=== PATIENT | male | born 1965 | race Caucasian/White ===

== ENCOUNTER 2019-09-27 15:59 | Emergency (ER) | payer MEDICAID, SELFPAY ==
[2019-09-27 16:49] VITALS: BP 144/86; PULSE 80; RESP 20; TEMP 36.9; O2SAT 99; BMI 29.3
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
[2019-09-27 17:12] VITALS: BP 144/86; PULSE 80; RESP 20; TEMP 36.9; O2SAT 99
[2019-09-29 08:25] LABS: Covid-19 Nasal PCR Sendout UK Not Detected
== END 2019-09-27 17:15 | disposition home or self-care (01) ==
PROVIDERS: Emergency Provider Nurse Practitioner; PCP Emergency Medicine
DX: Z20.828 Contact with and (suspected) exposure to other viral communicable diseases (principal); I10 Essential (primary) hypertension; F17.210 Nicotine dependence, cigarettes, uncomplicated
CPT/HCPCS: 99201; U0003

== ENCOUNTER → 2020-02-07 17:41 | Outpatient (CLI) | payer MEDICAID, SELFPAY ==
[2020-02-07 18:15] LABS: Basophils % 0.5 % (0.1-2.0); Eosinophils # 0.3 K/mm3 (0.0-0.4); Eosinophils % 3.2 % (0.1-12.0); Hematocrit 44.7 % (42.0-52.0); Hemoglobin 15.3 g/dL (14.1-18.0); Lymphocytes % 23.8 % (10-50); Mean Corpuscular HGB Conc 34.2 g/dL (31.8-35.4); Mean Corpuscular Hemoglobin 32.5 pg (27.0-31.2); Mean Corpuscular Volume 95.3 fl (80-94); Mean Platelet Volume 11.1 fl (7.4-10.4); Monocytes # 0.5 K/mm3 (0.1-1.0); Neutrophils # 5.7 K/mm3 (1.8-7.8); Neutrophils % 66.5 % (37.0-80.0); Platelet Count 175 K/mm3 (142-424); Red Blood Count 4.69 M/mm3 (4.60-6.20); Red Cell Distribution Width 13.7 % (11.5-17.5); White Blood Count 8.5 K/mm3 (4.8-10.8)
[2020-02-07 18:33] LABS: Chloride 100 mmol/L (98-107); Potassium 4.7 mmoL/L (3.5-5.1); Sodium 137 mmol/L (136-145)
[2020-02-07 18:35] LABS: Blood Urea Nitrogen 19 mg/dl (9-20); Estimated Glomerular Filt Rate 117 ml/min (>60); GFR (African American) 142 ML/MIN (>60)
[2020-02-07 18:36] LABS: Alanine Aminotransferase 38 U/L (12-78); Albumin Level 4.5 g/dl (3.5-5.0); Albumin/Globulin Ratio 1.7 (1.1-1.8); Alkaline Phosphatase 66 U/L (38-126); Anion Gap 10.7 mEq/L (5-15); Aspartate Amino Transferase 36 U/L (17-59); Bilirubin,Total 0.4 mg/dl (0.2-1.3); Calcium 9.6 mg/dl (8.4-10.2); Carbon Dioxide 31 mmol/L (22.0-30.0); Cholesterol 215 mg/dl (140-200); Globulin 2.7 g/dL (1.3-3.2); Glucose 170 mg/dl (74-100); Total Protein,Serum 7.2 g/dl (6.3-8.2); Triglycerides 95 mg/dl (30-150); VLDL Cholesterol 19 mg/dL (0-40)
[2020-02-07 18:47] LABS: Direct LDL Cholesterol 137.19 mg/dL (100-129)
[2020-02-07 18:51] LABS: Chol/HDL Ratio 3.7 (1-3.5); HDL Cholesterol 58 mg/dl (40-60)
[2020-02-07 18:52] LABS: Free T4 (Free Thyroxine) 0.82 ng/dl (0.78-2.19)
[2020-02-07 18:53] LABS: 25-OH Vitamin D, Total 38.4 ng/mL (30-100)
[2020-02-07 19:07] LABS: Thyroid Stimulating Hormone 0.51 uIU/mL (0.465-4.68)
[2020-02-07 20:35] LABS: Prostate Specific Ag Screen 0.7 ng/ml (0.0-4.0)
== END ==
PROVIDERS: Visit Provider Emergency Medicine
DX: I10 Essential (primary) hypertension (principal); E55.9 Vitamin D deficiency, unspecified; Z12.5 Encounter for screening for malignant neoplasm of prostate; Z79.899 Other long term (current) drug therapy
CPT/HCPCS: 80053; 80061; 82306; 84439; 84443; 85025; G0103

== ENCOUNTER → 2020-02-11 19:22 | Outpatient (CLI) | payer MEDICAID, SELFPAY ==
[2020-02-11 21:30] LABS: Hemoglobin A1C 5.9 % (4.0-6.0)
== END ==
PROVIDERS: Visit Provider Emergency Medicine
DX: R73.09 Other abnormal glucose (principal)
CPT/HCPCS: 83036

== ENCOUNTER → 2020-03-12 16:47 | Outpatient (CLI) | payer OTHER, SELFPAY ==
--- NOTE | 2020-03-12 16:47 | MR_ITS ---
PROCEDURE: MR LUMBAR SPINE WO CON CLINICAL INDICATION: low back pain LOW BACK PAIN. RT LEG PAIN, NUMBNESS, AND TINGLING. NO INJURY. NO PRIOR. COMPARISON: MR PORT PURSER/O MRI-C-SPINE W/O from 11/25/2015 TECHNIQUE: Standard multiplanar multiecho sequences are performed without contrast. 3-D MIP and myelographic images are also rendered and reviewed FINDINGS: Normal alignment. The spinal cord ends at the L1 level. There is multilevel lumbar spondylosis. T12-L1: Small left-sided lateral osteophyte. L1-L2: Endplate irregularity with degenerative disc disease. There is slight loss of height anteriorly of L1 which appears old minimal bulging disc with mild facet and ligamentum hypertrophy with mild left lateral recess narrowing. L2-L3: Degenerative disc disease with mild bulging disc with facet and ligamentum hypertrophy. There is mild left lateral recess narrowing and mild bilateral foraminal narrowing. There is an annular fissure within the disc anteriorly and on the left L3-L4: Mild bulging disc. Facet and ligamentum hypertrophy with mild bilateral lateral recess and foraminal narrowing. L4-5: Degenerative disc disease with bulging disc along with facet and ligamentum hypertrophy. There is a small left paracentral and foraminal disc osteophyte complex causing left lateral recess and foraminal narrowing. There is an annular fissure at this region as well. This is best detected on the sagittal images. Canal stenosis is present at this level L5-S1: Degenerative disc disease with bulging disc with minimal retrolisthesis of L5 of 4 mm and mild endplate hypertrophic change with facet and ligamentum hypertrophy. There is severe right and left foraminal narrowing and bilateral lateral recess narrowing. There is mild transverse narrowing of the canal at this level. IMPRESSION: There is multilevel lumbar spondylosis with degenerative disc disease, bulging disc, and facet and ligamentum hypertrophy with varying degrees of lateral recess and foraminal narrowing and also with canal stenosis. Please see above for detailed description at each level. No extruded herniated disc evident. Dictated by: Bob Harrison MD 03/14/2020 10:41 Bob Harrison MD in [place] 03/14/2020 10:41
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
== END ==
PROVIDERS: PCP Emergency Medicine; Visit Provider Nurse Practitioner Family
DX: M54.5 Low back pain (principal); H05.53 Retained (old) foreign body following penetrating wound of bilateral orbits
CPT/HCPCS: 70200; 72148; 76376

== ENCOUNTER 2020-03-31 13:00 | Outpatient (RCR) | payer OTHER, SELFPAY ==
--- NOTE | 2020-03-12 16:51 | HMH.PTOPEV ---
PT Outpatient Evaluation Rehab PT Outpatient Evaluation Start: 03/12/20 16:37 Freq: Status: Active Protocol: Document 03/12/20 16:37 ADRIANO (Rec: 03/12/20 16:51 ADRIANO [id number]) Electronically Signed By Vicente Anaya, PT 03/12/20 16:37 Outpatient Therapy Subjective History Subjective History Patient is a 54 year old male presenting to outpatient PT with reports of chronic LBP of insidious onset. Patient reports that symptoms have worsened over the past month upon starting a new job increased standing/lifting activities. No recent imaging to report. No radicular symptoms to report. Comorbidities include hx of HTN, R knee arthroscopic sx, inquinal hernia repair and current umbilical hernia ( possible diastasis recti). Chief Complaint Pain,Spasms,Stiff Symptom Type Ache,Sharp Symptoms Relieved By Rest/Positioning,Ice,OTC Meds, Prescription Meds Symptoms Aggravated By Standing,Bending/Stooping, Lifting Prior Functional Limitations None Current Functional Limitations Reaching,Lifting,Housework, Standing,Squatting,Recreation Activity,Walking,Stairs, Bending/Stooping Symptom Description Constant but Variable Level of pain today (0-10) 3 Pain scale - at its best (0-10) 2 Pain scale - at its worst (0-10) 7 Lumbopelvic Eval Posture Thoracic Spine Posture Standing Position Neutral Lumbar Spine Posture Standing Position Neutral Assistive device Assistive Devices None / NA Palapation tenderness bilateral paraspinal tenderness Yes: L1-5 3/4 buttock tenderness Yes: 3/4 Accessory Movement L3 bilateral L4 bilateral L5 bilateral Range of Motion Lumbar Spine Active Flexion Range of 85 Motion (degrees) Lumbar Spine Active Extension Range of 18 Motion (degrees) Left Lumbar Spine Lateral Flexion Active 20 Range of Motion (degrees) Right Lumbar Spine Lateral Flexion 25 Active Range of Motion (degrees) Lumbar Spine ROM Limitations Soft Tissue Tightness,Bony Restriction Manual Muscle Test Bilateral Knee Extension Strength Grade 5 Normal
== END 2020-03-31 13:05 | disposition home or self-care (01) ==
LOC: PT 13:00
PROVIDERS: PCP Emergency Medicine; Visit Provider Nurse Practitioner Family
DX: M54.5 Low back pain (principal)
CPT/HCPCS: 97010; 97012; 97014; 97110; 97163; G0283

== ENCOUNTER 2020-06-15 20:48 | Emergency (ER) | payer OTHER, SELFPAY ==
[2020-06-15] VITALS (7 sets, daily range): BP systolic 110–168; BP diastolic 75–105; PULSE 71–89; RESP 16–20; TEMP 36.7; O2SAT 93–98; BMI 31.1
--- NOTE | 2020-06-15 20:42 | ECG_ITS ---
APPROVED REPORT Exam: Resting ECG HR:80 bpm ECG Measurements Heart Rate 80 AXES FL 164 P 64 QRSd 102 QRS 7 QT 362 T 63 QTc 417 Conclusion Normal sinus rhythm Normal ECG Electronically signed by : Talon Whittington, 06/16/2020 19:36:39
--- NOTE | 2020-06-15 20:53 | XR_ITS ---
PROCEDURE: XR CHEST 2V CLINICAL HISTORY: chest pain COMPARISON: No exams were available for comparison FINDINGS: The cardiomediastinal silhouette and pulmonary vascularity are within normal limits. No lobar consolidation or collapse. There is an 8 mm nodular opacity overlying the left apex. The remaining clear. No acute bony findings IMPRESSION: No acute finding. 8 mm nodular opacity left apex. Summation density, pulmonary nodule, or sclerotic lesion of the rib is consideration. Follow-up suggested to confirm stability. Dictated by: Bob Harrison MD 06/16/2020 05:42 Bob Harrison MD in [place] 06/16/2020 05:42
[2020-06-15 21:01] LABS: Basophils # 0.1 K/mm3 (0-0.2); Basophils % 0.7 % (0.1-2.0); Eosinophils # 0.3 K/mm3 (0.0-0.4); Hematocrit 44.1 % (42.0-52.0); Hemoglobin 14.8 g/dL (14.1-18.0); Lymphocytes # 2.5 K/mm3 (0.7-4.5); Lymphocytes % 25.6 % (10-50); Mean Corpuscular HGB Conc 33.6 g/dL (31.8-35.4); Mean Corpuscular Volume 95.3 fl (80-94); Mean Platelet Volume 8.2 fl (7.4-10.4); Monocytes # 0.7 K/mm3 (0.1-1.0); Neutrophils # 6.2 K/mm3 (1.8-7.8); Neutrophils % 63.8 % (37.0-80.0); Platelet Count 203 K/mm3 (142-424); Red Blood Count 4.62 M/mm3 (4.60-6.20); White Blood Count 9.7 K/mm3 (4.8-10.8)
[2020-06-15 21:10] LABS: Anion Gap 10.2 mEq/L (5-15); Blood Urea Nitrogen 20 mg/dl (9-20); Calcium 9.7 mg/dl (8.4-10.2); Carbon Dioxide 32 mmol/L (22.0-30.0); Chloride 99 mmol/L (98-107); Creatinine Clearance Estimated 154 mL/min (50-200); Estimated Glomerular Filt Rate 100 ml/min (>60); GFR (African American) 121 ML/MIN (>60); Glucose 112 mg/dl (74-100); Potassium 4.2 mmoL/L (3.5-5.1); Sodium 137 mmol/L (136-145)
[2020-06-15 21:16] LABS: C-Reactive Protein 3.7 mg/L (0-4)
[2020-06-15 21:30] LABS: Procalcitonin 0.037 ng/mL (0.0-2.0)
[2020-06-15 21:37] LABS: Troponin I < 0.01 ng/ml (0.00-0.034)
[2020-06-15 22:21] LABS: Erythrocyte Sedimentation Rate 25 mm/hr (0-20)
--- NOTE | 2020-06-15 23:26 | HMH.EDCP ---
ED Disposition Clinical Impression: Unstable angina pectoris, DORIAN (obstructive sleep apnea), Tobacco use, Obesity (BMI 30.0-34.9) Hypertension Qualifiers: Hypertension type: essential hypertension Qualified Code(s): I10 - Essential (primary) hypertension Disposition: Admitted as Observation Condition on Discharge: Good Referrals: Roger Otoole MD [Primary Care Provider] - - Critical Care Critical Care Time: No Attestation: On 06/15/20, the high probability of a clinically significant, sudden or life threatening deterioration of the following system(s) required my full and direct attention, intervention and personal management. The time I documented below is in addition to time spent performing reported procedures but includes the following listed in this critical care notation. Medical Decision Making - Medical Records Medical records reviewed: Yes: I reviewed the patient's medical records. - Som Inquiry Pt receiving controlled substance: No Vital Signs: 06/15/20 20:48 Temperature 98.1 F Temperature Source Oral Respiratory Rate 18 Blood Pressure [Right Arm] 168/105 H Blood Pressure Mean [Right Arm] 126 Blood Pressure Source [Right Arm] Automatic Cuff 02 Sat by Pulse Oximetry 98 Oxygen Delivery Method Room Air - Lab Data Lab results reviewed: Yes: I reviewed the patient's lab results. Lab Results 06/15/20 20:50: WBC 9.7, RBC 4.62, Hgb 14.8, Hct 44.1, MCV 95.3 H, MCH 32.0 H, MCHC 33.6, RDW 13.0, Plt Count 203, MPV 8.2, Neut % (Auto) 63.8, Lymph % (Auto) 25.6, [place] % (Auto) 7.0, Eos % (Auto) 3.0, Baso % (Auto) 0.7, Neut # (Auto) 6.2, Lymph # (Auto) 2.5, [place] # (Auto) 0.7, Eos # (Auto) 0.3, Baso # (Auto) 0.1, ESR 25 H 06/15/20 20:50: Sodium 137, Potassium 4.2, Chloride 99, Carbon Dioxide 32 H, Anion Gap 10.2, BUN 20, Creatinine 0.80, Estimated Creat Clear 154, Estimated GFR 100, Est GFR ( Amer) 121, Glucose 112 H, Calcium 9.7, Troponin I < 0.01, C-Reactive Protein 3.7, Procalcitonin 0.037 Result diagrams: 06/15/20 20:50 06/15/20 20:50 Orders (Tests/Meds): ED MEDICATIONS Discontinued Medications Generic Name Dose Route Start Last Admin Trade Name Keiko PRN Reason Stop Dose Admin Aspirin 324 mg 06/15/20 20:55 06/15/20 20:57 Aspirin 81mg Chewable Tablet PO 06/15/20 20:56 324 mg ONCE ONE Administration Nitroglycerin 0.4 mg 06/15/20 20:55 06/15/20 20:58 Nitroglycerin 0.4mg Sl Tablet SL 06/15/20 20:56 0.4 mg ONCE ONE Administration ORDERS Category Date Time Status CXR 2 view (NOT portable) [XR chest 2V] Stat Exams 06/15/20 20:53 Taken Covid-19 Nasal PCR ([facility]) Routine Lab 06/15/20 21:17 Received ESR [Erythrocyte Sedimentation Rate] Stat Lab 06/15/20 20:50 Received Troponin I Q3H Lab 06/15/20 23:55 Ordered Troponin I Q3H Lab 06/16/20 02:55 Ordered - Radiology Data #1 Image(s): Chest Image Reviewed: Yes I reviewed the patient's radiology image Preliminary Findings: Normal/NAD - ECG Data Tracing #1 Normal Sinus Rhythm: Yes Ischemic changes: non-specific ST-T wave changes Medical Decision Narrative: has chest pain which sounds anginal with sig risk factors and will be admitted for eval Chest Pain HPI - General Chief Complaint: Chest Pain Stated Complaint: chest apin Time Seen by Provider: 06/15/20 22:00 Mode of Arrival: Ambulatory Source of Information: Patient, Medical Record Limitations: No Limitations Description of Symptoms (Recalled from ER Triage Doc. by RN): pt c/o chest pain that started a few days ago and has worsened today. Pt ststea pain just doesn't feel right over left chest and goes up towards left neck. no arm pain or numbness/tingling. Mild headache reported. Only h/xreported is HTN and pt states he did take his meds today but doesn't know the names. Pt denies any n/v/d. Pt denies any SOB - History of Present Illness HPI narrative: pt with progressive chest pain over the last few weeks - has o
[2020-06-15 23:28] LABS: Erythrocyte Sedimentation Rate 15 mm/hr (0-20)
[2020-06-16] VITALS (42 sets, daily range): BP systolic 95–152; BP diastolic 43–92; PULSE 64–91; RESP 10–20; TEMP 37.2; O2SAT 89–99
--- NOTE | 2020-06-16 | IR_ITS ---
APPROVED REPORT Patient Location: Inpatient Explosive Ordnance Technician: MISSY Lubin RT (R) PROCEDURES Left heart catheterization Left ventriculogram Selective coronary angiogram INDICATION Numerous risk factors for coronary disease with unstable angina Informed consent was obtained prior to the procedure. COMPLICATIONS NONE Estimated Blood Loss: LESS THAN 10 ML TECHNIQUE One percent lidocaine used to anesthetize the right anterior aspect of the wrist. The right radial artery was accessed via the Seldinger technique. A 6 Armenian sheath was placed in the right radial artery. 2.5 mg of verapamil, 800 mcg of nitroglycerin, 1mg Lidocaine and 5000 U Heparin were given through the arterial sheath. The Poppa catheter was also used to perform left heart catheterization, left ventriculogram and selective coronary angiogram. At the end of the procedure the sheath was removed good hemostasis was achieved using Traclet band, patient was transferred to the postop holding area in stable condition. ANGIOGRAPHIC RESULTS The left main artery Normal The left anterior descending artery Proximally normal with mid vessel 30 to 40% stenosis The circumflex artery Nondominant yet still large and normal The right coronary artery Is a large dominant vessel with proximal mid vessel and distal 10 to 20% stenoses The KRAFT ventriculogram reveals Hyperdynamic at 70% The left ventricular end-diastolic pressure 10 to 15 mmHg IMPRESSION Mild to moderate mid LAD disease as described above Hyperdynamic ventricle with mildly elevated LVEDP PLAN 1. Medical management 2. LDL less than 55 3. Aggressive risk factor modification Electronically signed by : Tyree Biggs, 06/16/2020 14:18:55
[2020-06-16 00:24] LABS: Troponin I < 0.01 ng/ml (0.00-0.034)
[2020-06-16 03:09] LABS: Troponin I < 0.01 ng/ml (0.00-0.034)
--- NOTE | 2020-06-16 04:33 | CA_ITS ---
APPROVED REPORT EXAM: Comprehensive 2D, Doppler, and color-flow Echocardiogram Dampener: Savi Holman RVT Ht: 6 ft 0 in Wt: 230lbs BSA: 2.26 BP: 168/105 mmHg Indications: CP,DORIAN,SMOKER,HTN,HLD 2D Dimensions LVOT 2.30 cm (M/F) 1.5-2.5 M-Mode Dimensions RVDd 3.70 cm (0.9-2.6) LA Diam 3.90 cm (1.9-4.0) LVDd 5.79 cm (3.5-5.7) Ao Diam 3.86 cm (2.0-3.7) LVDs 3.52 cm (3.5-5.7) IVSd 0.58 cm (0.6-1.1) PWd 0.80 cm (0.6-1.1) EF (Teich) 68.90% FS 39.20% EDV (Teich) 165.90 mL ESV (Teich) 51.60 mL LV Diastology E Decel Time 310.00 (160-240 msec) E/A Ratio 0.7 MED E' 4.90 (< 7 cm/sec) E'/MED E' Ratio 13.39 (>14) LAT E' 6.20 (<10 cm/sec) E/LAT E' Ratio 10.58 (>14) Mitral Valve MV E Max Boom. 66.00 (40-130 cm/s) MV A Velocity 100.00 (40-130 cm/s) E/A Ratio 0.66 MV Decel. Time 310.00 (160-240 ms) MV PHT 91.00 ms Pulmonary Valve PV Peak Velocity 82.00 (50-150 cm/s) Left Ventricle Left atrium is mildly enlarged, left ventricle is normal size, mild concentric left ventricular hypertrophy, visually estimated ejection fraction 55% with no regional wall motion abnormality, grade 1 diastolic dysfunction seen without tissue Doppler evidence of raise left atrial pressure. Right Ventricle Right atrium and right ventricle mildly enlarged with normal contractility. Aortic Valve Aortic valve is minimally thickened and fibrosed, there is no aortic stenosis or aortic insufficiency. Mitral Valve Mitral valve grossly normal, there is trace mitral regurgitation. Tricuspid Valve Tricuspid valve grossly normal, there is trace tricuspid regurgitation. Tricuspid rotation jet velocity is inadequate for calculation of the right ventricular systolic pressure. Pulmonic Valve Pulmonic valve is poorly visualized. Great Vessels Aortic root is normal size. Pericardium No significant pericardial effusion noted. Conclusion 1. Mild biatrial enlargement, normal left ventricular size, mild concentric left ventricular hypertrophy, visually estimated ejection fraction 55% with no regional wall motion abnormality, grade 1 diastolic dysfunction seen without tissue Doppler evidence of raise left atrial pressure. 2. Mildly enlarged right ventricle with normal contractility. 3. Trace mitral and tricuspid regurgitation. 4. No significant pericardial effusion noted. Electronically signed by : Jens Wesley, 06/16/2020 19:58:00
[2020-06-16 06:19] LABS: Anion Gap 9.9 mEq/L (5-15); Blood Urea Nitrogen 19 mg/dl (9-20); Calcium 9.2 mg/dl (8.4-10.2); Carbon Dioxide 27 mmol/L (22.0-30.0); Chloride 103 mmol/L (98-107); Creatinine Clearance Estimated 205 mL/min (50-200); Estimated Glomerular Filt Rate 140 ml/min (>60); GFR (African American) 169 ML/MIN (>60); Glucose 112 mg/dl (74-100); Magnesium 2.1 mg/dl (1.6-2.3); Potassium 3.9 mmoL/L (3.5-5.1); Sodium 136 mmol/L (136-145)
[2020-06-16 06:26] LABS: Basophils % 0.4 % (0.1-2.0); Eosinophils # 0.3 K/mm3 (0.0-0.4); Eosinophils % 3.4 % (0.1-12.0); Lymphocytes # 2.4 K/mm3 (0.7-4.5); Lymphocytes % 25.1 % (10-50); Mean Corpuscular HGB Conc 34.1 g/dL (31.8-35.4); Mean Corpuscular Volume 93.8 fl (80-94); Mean Platelet Volume 8.4 fl (7.4-10.4); Monocytes # 0.6 K/mm3 (0.1-1.0); Monocytes % 6.5 % (1.7-9.3); Neutrophils # 6.3 K/mm3 (1.8-7.8); Neutrophils % 64.5 % (37.0-80.0); Platelet Count 176 K/mm3 (142-424); Red Blood Count 4.38 M/mm3 (4.60-6.20); Red Cell Distribution Width 13.2 % (11.5-17.5); White Blood Count 9.7 K/mm3 (4.8-10.8)
--- NOTE | 2020-06-16 09:45 | PC.NURSE ---
Cardiology at bedside.
--- NOTE | 2020-06-16 10:06 | HMH.CNCARD ---
<Tonia Segura - Last Filed: 06/16/20 10:06> History of Present Illness Consult date: 06/16/20 Requesting physician: Roger Otoole Consult reason: chest pain Chief complaint: chest pain History of present illness: This is a 54-year-old white gentleman who presented to the emergency department with complaints of chest pain. The patient states that he started having chest pain a few days ago and it worsened yesterday. He describes his chest pain as a sharp sensation in the left side of his chest and then goes up into his neck. He states the left side of his chest just does not feel normal like the right side of his chest as. He denies any associated shortness of breath, nausea, vomiting or diaphoresis. He states that the pain in his chest is mild but was worse than normal for him and decided to come into the emergency department. He does have an associated headache. He states that he has had chest pain for a really long time but over the last few days it has continued to worsen and happen more frequently. Nothing worsens the pain and nothing helps to improve the pain. He states that the pain lasts for several minutes and then resolves and then continues to recur intermittently. The patient does have hypertension and is a tobacco user. He also reports a family history of ischemic heart disease. He states that he was told in the past that his cholesterol levels were borderline high but he has never been treated for high cholesterol. The patient is very eager to go home today and states that he does not know if he will stay here at the hospital to have the procedure completed because he is ready to go. [facility] History I have reviewed the patient's past medical history: Yes Medical History: Reports:: Hyperlipidemia, Hypertension *Have you ever received a pneumonia vaccine?: No *Have you received a flu vaccine this season?: No Laterality Cases: Left: Arthroscopy Knee Amputation: No Fractures: No - *Social History Smoking Status: Current every day smoker Tobacco Type: cigarettes # Packs/Day (cigarettes): 1 Alcohol Intake: current Alcohol Intake Frequency:: 3 or more drinks per day Substance Use Type: denies use, other *Occupational Status:: other Housing: house Household Members: spouse *Travel in the last 8 weeks: None Family Hx:: Heart Attack, Hyperlipidemia, Coronary Artery Disease, Hypertension, Cancer, Other Meds Home Medications Medication Instructions Recorded Confirmed Type lisinopril 20 1 tab PO DAILY #30 tab 06/10/20 06/16/20 Rx mg-hydrochlorothiazide 12.5 mg tablet Amlodipine Besylate 5 mg PO HS 06/16/20 06/16/20 History Allergies Allergy/AdvReac Type Severity Reaction Status Date / Time No Known Drug Allergies Allergy Unknown Verified 06/15/20 09:05 [NO KNOWN DRUG ALLERGIES] Exam Vital signs and Labs for Last 24 Hours: Temp Pulse Resp BP Pulse Ox 98.1 F 69 19 105/43 L 92 L 06/15/20 20:48 06/16/20 06:45 06/16/20 06:45 06/16/20 06:30 06/16/20 05:00 Laboratory Results - last 24 hr 06/15/20 20:50: WBC 9.7, RBC 4.62, Hgb 14.8, Hct 44.1, MCV 95.3 H, MCH 32.0 H, MCHC 33.6, RDW 13.0, Plt Count 203, MPV 8.2, Neut % (Auto) 63.8, Lymph % (Auto) 25.6, [place] % (Auto) 7.0, Eos % (Auto) 3.0, Baso % (Auto) 0.7, Neut # (Auto) 6.2, Lymph # (Auto) 2.5, [place] # (Auto) 0.7, Eos # (Auto) 0.3, Baso # (Auto) 0.1, ESR 25 H 06/15/20 20:50: Sodium 137, Potassium 4.2, Chloride 99, Carbon Dioxide 32 H, Anion Gap 10.2, BUN 20, Creatinine 0.80, Estimated Creat Clear 154, Estimated GFR 100, Est GFR ( Amer) 121, Glucose 112 H, Calcium 9.7, Troponin I < 0.01, C-Reactive Protein 3.7, Procalcitonin 0.037 06/15/20 20:50: ESR 15 06/15/20 23:57: Troponin I < 0.01 06/16/20 02:35: Troponin I < 0.01 06/16/20 05:10: WBC 9.7, RBC 4.38 L, Hgb 14.0 L, Hct 41.0 L, MCV 93.8, MCH 32.0 H, MCHC 34.1, RDW 13.2, Plt Count 176, MPV 8.4, Neut % (Auto) 64.5, Lymph % (Auto) 25.1, [place] % (Auto) 6.5, Eos % (Auto) 3.4, Baso % (Auto) 0.
--- NOTE | 2020-06-16 10:21 | P.CONPHA_ITS ---
[facility] Pharmacy VTE Monitoring - Patient Demographics Admission date: 06/16/20 Report Date: 06/16/20 Time: 10:22 Allergies/Adverse Reactions: Patient Allergies No Known Drug Allergies [NO KNOWN DRUG ALLERGIES] Allergy (Unknown, Verified 06/15/20 09:05) Height: 1.83 m Weight: 104.326 kg Patient Problems: Current Active Problems Unstable angina pectoris (Acute) Family history of coronary artery disease (Chronic) DORIAN (obstructive sleep apnea) (Chronic) Tobacco use (Chronic) Obesity (BMI 30.0-34.9) (Acute) Hyperlipidemia (Chronic) Hypertension (Chronic) - VTE Risk Labs: VTE Related Lab Results Hgb 14.0 g/dL (14.1-18.0) L 06/16/20 05:10 Hct 41.0 % (42.0-52.0) L 06/16/20 05:10 Plt Count 176 K/mm3 (142-424) 06/16/20 05:10 BUN 19 mg/dl (9-20) 06/16/20 05:10 Creatinine 0.60 mg/dl (0.66-1.25) L D 06/16/20 05:10 Estimated Creat Clear 205 mL/min (50-200) 06/16/20 05:10 Clinical Trial Participant: No - Prophylaxis VTE Prophylaxis Ordered?: Yes Types of VTE Prophylaxis: TEDS Knee High
--- NOTE | 2020-06-16 12:32 | PC.NURSE ---
Bilateral groins shaved at this time. Pt updated on care.
--- NOTE | 2020-06-16 15:18 | HMH.HPDC ---
General - General Admission date:: 06/15/20 Discharge date: 06/16/20 *Admission Date: 06/16/20 *Chief complaint: Chest Pain *History of present illness: This is a 54-year-old white gentleman who presented to the emergency department with complaints of chest pain. The patient states that he started having chest pain a few days ago and it worsened yesterday. He describes his chest pain as a sharp sensation in the left side of his chest and then goes up into his neck. He states the left side of his chest just does not feel normal like the right side of his chest as. He denies any associated shortness of breath, nausea, vomiting or diaphoresis. He states that the pain in his chest is mild but was worse than normal for him and decided to come into the emergency department. He does have an associated headache. He states that he has had chest pain for a really long time but over the last few days it has continued to worsen and happen more frequently. Nothing worsens the pain and nothing helps to improve the pain. He states that the pain lasts for several minutes and then resolves and then continues to recur intermittently. The patient does have hypertension and is a tobacco user. He also reports a family history of ischemic heart disease. He states that he was told in the past that his cholesterol levels were borderline high but he has never been treated for high cholesterol. The patient is very eager to go home today and states that he does not know if he will stay here at the hospital to have the procedure completed because he is ready to go (Per Milagros Segura APRN). [facility] History I have reviewed the patient's past medical history: Yes Medical History: Reports:: Hyperlipidemia, Hypertension *Have you ever received a pneumonia vaccine?: No *Have you received a flu vaccine this season?: No Laterality Cases: Left: Arthroscopy Knee Amputation: No Fractures: No - *Social History Smoking Status: Current every day smoker Tobacco Type: cigarettes # Packs/Day (cigarettes): 1 Alcohol Intake: current Alcohol Intake Frequency:: 3 or more drinks per day Substance Use Type: denies use, other *Occupational Status:: other Housing: house Household Members: spouse *Travel in the last 8 weeks: None Family Hx:: Heart Attack, Hyperlipidemia, Coronary Artery Disease, Hypertension, Cancer, Other Review of Systems - Review of Systems Review of systems:: pertinent systems reviewed and negative unless documented below - Constitutional Denies anorexia, Denies daytime sleepiness - Eyes Denies blind spots, Denies change in vision - ENT Denies poor balance, Denies dry mouth - *Cardiovascular Reports chest pain, Reports chest pain at rest, Reports chest pain with activity, Reports shortness of breath - *Respiratory Reports shortness of breath, Denies chest congestion - *Gastrointestinal Denies abdominal pain, Denies change in stools - *Musculoskeletal Denies abnormal walking, Denies back pain - Integumentary/Breasts Denies hair loss, Denies itching - *Neurologic Denies localized weakness, Denies headache(s), Denies seizure-like activity - Psychiatric Denies anxiety, Denies behavioral changes - Endocrine Denies cold intolerance, Denies heat intolerance - Hematologic/Lymphatic Denies easy bleeding, Denies enlarged lymph nodes - Allergic/Immunologic Denies lip swelling, Denies tongue swelling Exam Vital signs and Labs for Last 24 Hours: Temp Pulse Resp BP Pulse Ox 98.9 F 85 18 130/91 H 95 06/16/20 13:30 06/16/20 15:05 06/16/20 15:05 06/16/20 15:05 06/16/20 15:05 Laboratory Results - last 24 hr 06/15/20 20:50: WBC 9.7, RBC 4.62, Hgb 14.8, Hct 44.1, MCV 95.3 H, MCH 32.0 H, MCHC 33.6, RDW 13.0, Plt Count 203, MPV 8.2, Neut % (Auto) 63.8, Lymph % (Auto) 25.6, Mcdonald % (Auto) 7.0, Eos % (Auto) 3.0, Baso % (Auto) 0.7, Neut # (Auto) 6.2, Lymph # (Auto) 2.5, Mcdonald # (Auto) 0.7, Eos # (Auto) 0.3, Baso # (Auto) 0.1, ESR 25 H
== END 2020-06-16 16:35 | disposition home or self-care (01) ==
LOC: ER 23:33 → 2ND 06-16 09:01
PROVIDERS: Internal Medicine; Emergency Provider Emergency Medicine; PCP Emergency Medicine
DX: I20.0 Unstable angina (principal); G47.33 Obstructive sleep apnea (adult) (pediatric); I10 Essential (primary) hypertension; E78.5 Hyperlipidemia, unspecified; Z20.822 Contact with and (suspected) exposure to COVID-19; Z82.49 Family history of ischemic heart disease and other diseases of the circulatory system; F17.210 Nicotine dependence, cigarettes, uncomplicated; E66.9 Obesity, unspecified; Z68.31 Body mass index [BMI] 31.0-31.9, adult; Z79.899 Other long term (current) drug therapy
CPT/HCPCS: 71046; 80048; 83735; 84145; 84484; 85025; 85651; 86140; 93005; 93306; 99152; 99284; C1725; C1769; J1644; Q9967; U0003

== ENCOUNTER → 2020-06-30 07:43 | Outpatient (CLI) | payer OTHER, SELFPAY ==
--- NOTE | 2020-06-30 07:44 | CA_ITS ---
APPROVED REPORT Tool Marker: MICHELL Study Quality: Fair, Due to overlying bowel gas. Indications: hypertension, family hx-kidney stones Renal Artery Doppler Proximal (R) 106.7/ cm/sec Mid (R) 192.2/ cm/sec Distal (R) 151.1/ cm/sec Renal Aorta Ratio (R) 0.00 Segmental A. (R) / cm/sec RI: 0.66 Segmental A. Sup (R) 38.0/13.0 cm/sec Segmental A. Mid (R) 61.0/17.0 cm/sec Segmental A. Inf (R) 38.0/15.0 cm/sec Mid (L) 217.2/ cm/sec Distal (L) 134.9/ cm/sec Renal Aorta Ratio (L) 0.00 Segmental A. (L) / cm/sec RI: 0.67 Segmental A. Sup (L) 20.0/7.0 cm/sec Segmental A. Mid (L) 24.0/8.0 cm/sec Segmental A. Inf (L) 37.0/11.0 cm/sec Renal Measurements Kidney Size (R) 10.9x6.2 cm Kidney Size (L) 10.2x5.6 cm Renal Transplant RAR (R) 2.4 RAR (L) 2.68 Findings Incidental finding of liver cyst. This was a technically difficult and therefore limited exam due to the presence of bowel gas and abdominal movement with respiration. Both kidneys appear to be within normal size parameters (greater than 9.0cm and symmetrical). Duplex evaluation demonstrates less than 60% stenosis of both renal arteries with Renal/Aortic ratio (RAR) less than 3.5. Conclusion Incidental finding of liver cyst. This was a technically difficult and therefore limited exam due to the presence of bowel gas and abdominal movement with respiration. Both kidneys appear to be within normal size parameters (greater than 9.0cm and symmetrical). Duplex evaluation demonstrates less than 60% stenosis of both renal arteries with Renal/Aortic ratio (RAR) less than 3.5. Electronically signed by : Ruthy Olvera, 07/01/2020 17:27:37
== END ==
PROVIDERS: PCP Emergency Medicine; Visit Provider Emergency Medicine
DX: I10 Essential (primary) hypertension (principal)
CPT/HCPCS: 93976

== ENCOUNTER → 2021-06-28 16:00 | Outpatient (CLI) | payer OTHER, SELFPAY ==
[2021-06-28 19:27] LABS: Basophils # 0.1 K/mm3 (0-0.2); Basophils % 0.9 % (0.1-2.0); Eosinophils # 0.3 K/mm3 (0.0-0.4); Eosinophils % 3.3 % (0.1-12.0); Hematocrit 43.4 % (42.0-52.0); Hemoglobin 14.1 g/dL (14.1-18.0); Lymphocytes # 2.2 K/mm3 (0.7-4.5); Lymphocytes % 23.1 % (10-50); Mean Corpuscular HGB Conc 32.5 g/dL (31.8-35.4); Mean Corpuscular Hemoglobin 32.6 pg (27.0-31.2); Mean Corpuscular Volume 100.1 fl (80-94); Mean Platelet Volume 9.5 fl (7.4-10.4); Monocytes # 0.6 K/mm3 (0.1-1.0); Monocytes % 5.9 % (1.7-9.3); Neutrophils # 6.2 K/mm3 (1.8-7.8); Neutrophils % 66.7 % (37.0-80.0); Platelet Count 213 K/mm3 (142-424); Red Blood Count 4.34 M/mm3 (4.60-6.20); Red Cell Distribution Width 13.3 % (11.5-17.5); White Blood Count 9.3 K/mm3 (4.8-10.8)
[2021-06-28 20:01] LABS: Alanine Aminotransferase 26 U/L (12-78); Albumin Level 4.6 g/dl (3.5-5.0); Albumin/Globulin Ratio 1.9 (1.1-1.8); Alkaline Phosphatase 74 U/L (38-126); Anion Gap 9.8 mEq/L (5-15); Aspartate Amino Transferase 27 U/L (17-59); Bilirubin,Total 0.3 mg/dl (0.2-1.3); Blood Urea Nitrogen 20 mg/dl (9-20); Calcium 9.3 mg/dl (8.4-10.2); Carbon Dioxide 34 mmol/L (22.0-30.0); Chloride 100 mmol/L (98-107); Chol/HDL Ratio 2.6 (1-3.5); Cholesterol 154 mg/dl (140-200); Estimated Glomerular Filt Rate 117 ml/min (>60); GFR (African American) 141 ML/MIN (>60); Globulin 2.4 g/dL (1.3-3.2); Glucose 99 mg/dl (74-100); HDL Cholesterol 60 mg/dl (40-60); Potassium 4.8 mmoL/L (3.5-5.1); Sodium 139 mmol/L (136-145); Triglycerides 130 mg/dl (30-150); VLDL Cholesterol 26 mg/dL (0-40)
[2021-06-28 20:12] LABS: Direct LDL Cholesterol 65.66 mg/dL (100-129)
[2021-06-28 20:18] LABS: 25-OH Vitamin D, Total 40.7 ng/mL (30-100); T4 (Thyroxine) 7.8 ug/dl (5.53-11.0)
[2021-06-28 20:32] LABS: Prostate Specific Ag Screen 0.8 ng/ml (0.0-4.0); Thyroid Stimulating Hormone 1.39 uIU/mL (0.465-4.68)
== END ==
PROVIDERS: Visit Provider Emergency Medicine
DX: I25.10 Atherosclerotic heart disease of native coronary artery without angina pectoris (principal); I10 Essential (primary) hypertension; E78.5 Hyperlipidemia, unspecified; Z12.5 Encounter for screening for malignant neoplasm of prostate
CPT/HCPCS: 80053; 80061; 82306; 84436; 84443; 85025; G0103

== ENCOUNTER → 2021-10-05 13:39 | Outpatient (CLI) | payer OTHER, SELFPAY ==
--- NOTE | 2021-10-05 13:42 | XR_ITS ---
FINAL REPORT CLINICAL HISTORY: knee pain FINDINGS: RIGHT KNEE Four views of the right knee were obtained. There is no acute fracture or dislocation. There is mild degenerative change. A small joint effusion is seen. IMPRESSION: Mild degenerative change. Reviewed, Interpreted and Dictated by Russell Murphy III, MD Transcribed by Tamar Mata Authenticated and . [facility]
== END ==
PROVIDERS: PCP Emergency Medicine; Visit Provider Orthopaedic Surgery
DX: M25.561 Pain in right knee (principal)
CPT/HCPCS: 73564

== ENCOUNTER → 2022-01-20 14:48 | Outpatient (CLI) | payer OTHER, SELFPAY ==
--- NOTE | 2022-01-20 14:51 | XR_ITS ---
FINAL REPORT CLINICAL HISTORY: cough, smoker COMPARISON: 06/15/2020 FINDINGS: Two views of the chest were obtained. The heart size and pulmonary vascularity are within normal limits. The mediastinum is normal. The lungs are hyperinflated consistent with COPD. There is no active pulmonary disease. There is no pneumothorax. The bony thorax is intact. IMPRESSION: No active cardiopulmonary disease. COPD. Reviewed, Interpreted and Dictated by Russell Murphy III, MD Transcribed by Irene Reaves Authenticated and [facility]
== END ==
PROVIDERS: PCP Emergency Medicine; Visit Provider Physician Assistant
DX: I25.10 Atherosclerotic heart disease of native coronary artery without angina pectoris (principal); I10 Essential (primary) hypertension; E78.5 Hyperlipidemia, unspecified; Z72.0 Tobacco use
CPT/HCPCS: 71046

== ENCOUNTER → 2023-02-21 09:06 | Outpatient (CLI) | payer OTHER, SELFPAY ==
[2023-02-21 19:07] LABS: Basophils # 0.1 K/mm3 (0-0.2); Basophils % 0.6 % (0.1-2.0); Eosinophils # 0.3 K/mm3 (0.0-0.4); Eosinophils % 3.8 % (0.1-12.0); Hematocrit 43.9 % (42.0-52.0); Hemoglobin 14.8 g/dL (14.1-18.0); Lymphocytes # 2.5 K/mm3 (0.7-4.5); Lymphocytes % 30.2 % (10-50); Mean Corpuscular HGB Conc 33.7 g/dL (31.8-35.4); Mean Corpuscular Hemoglobin 33.3 pg (27.0-31.2); Mean Platelet Volume 9.6 fl (7.4-10.4); Monocytes # 0.7 K/mm3 (0.1-1.0); Neutrophils # 4.8 K/mm3 (1.8-7.8); Neutrophils % 57.5 % (37.0-80.0); Platelet Count 163 K/mm3 (142-424); Red Blood Count 4.44 M/mm3 (4.60-6.20); White Blood Count 8.4 K/mm3 (4.8-10.8)
[2023-02-21 20:28] LABS: Alanine Aminotransferase 25 U/L (12-78); Albumin Level 4.4 g/dl (3.5-5.0); Albumin/Globulin Ratio 1.6 (1.1-1.8); Alkaline Phosphatase 89 U/L (38-126); Anion Gap 13.2 mEq/L (5-15); Aspartate Amino Transferase 26 U/L (17-59); Bilirubin,Total 0.3 mg/dl (0.2-1.3); Blood Urea Nitrogen 23 mg/dl (9-20); Calcium 9.1 mg/dl (8.4-10.2); Carbon Dioxide 32 mmol/L (22.0-30.0); Chloride 98 mmol/L (98-107); Chol/HDL Ratio 3.8 (1-3.5); Cholesterol 206 mg/dl (140-200); Estimated Glomerular Filt Rate 87 ml/min (>60); GFR (African American) 105 ML/MIN (>60); Globulin 2.7 g/dL (1.3-3.2); Glucose 76 mg/dl (74-100); HDL Cholesterol 54 mg/dl (40-60); Potassium 5.2 mmoL/L (3.5-5.1); Sodium 138 mmol/L (136-145); Total Protein,Serum 7.1 g/dl (6.3-8.2); Triglycerides 261 mg/dl (30-150); VLDL Cholesterol 52 mg/dL (0-40)
[2023-02-21 20:39] LABS: Direct LDL Cholesterol 123.42 mg/dL (100-129)
[2023-02-21 20:43] LABS: 25-OH Vitamin D, Total 25.6 ng/mL (30-100)
[2023-02-21 20:47] LABS: T4 (Thyroxine) 7.8 ug/dl (5.53-11.0)
[2023-02-21 21:01] LABS: Thyroid Stimulating Hormone 1.31 uIU/mL (0.465-4.68)
[2023-02-23 08:17] LABS: Testosterone,Total 64 ng/dL (264-916)
== END ==
PROVIDERS: PCP Emergency Medicine; Visit Provider Emergency Medicine
DX: E78.5 Hyperlipidemia, unspecified (principal); I10 Essential (primary) hypertension; E55.9 Vitamin D deficiency, unspecified; Z68.31 Body mass index [BMI] 31.0-31.9, adult; Z72.0 Tobacco use
CPT/HCPCS: 80053; 80061; 82306; 84403; 84436; 84443; 85025; G0103

== ENCOUNTER → 2023-02-28 12:34 | Outpatient (CLI) | payer OTHER, SELFPAY ==
[2023-03-01 12:49] LABS: Testosterone,Total 372 ng/dL (264-916)
== END ==
PROVIDERS: PCP Internal Medicine; Visit Provider Internal Medicine
DX: N52.9 Male erectile dysfunction, unspecified (principal)
CPT/HCPCS: 36415; 84403

== ENCOUNTER 2023-07-19 15:22 | Outpatient (CLI) | payer OTHER, SELFPAY ==
[2023-07-19 18:29] LABS: Alanine Aminotransferase 28 U/L (12-78); Albumin Level 4.2 g/dl (3.5-5.0); Albumin/Globulin Ratio 1.7 (1.1-1.8); Alkaline Phosphatase 80 U/L (38-126); Aspartate Amino Transferase 29 U/L (17-59); Bilirubin,Total 0.3 mg/dl (0.2-1.3); Blood Urea Nitrogen 23 mg/dl (9-20); Calcium 9.4 mg/dl (8.4-10.2); Carbon Dioxide 31 mmol/L (22.0-30.0); Chloride 104 mmol/L (98-107); Estimated Glomerular Filt Rate 116 ml/min (>60); GFR (African American) 140 ML/MIN (>60); Globulin 2.5 g/dL (1.3-3.2); Glucose 108 mg/dl (74-100); Sodium 141 mmol/L (136-145); Total Protein,Serum 6.7 g/dl (6.3-8.2)
== END 2023-07-19 23:59 | disposition home or self-care (01) ==
LOC: LAB.DROPOF 07-20 15:24
PROVIDERS: Visit Provider Family Medicine
DX: I10 Essential (primary) hypertension (principal)
CPT/HCPCS: 80053

== ENCOUNTER 2023-12-29 14:38 | Outpatient (CLI) | payer OTHER, SELFPAY ==
--- NOTE | 2023-12-29 14:41 | XR_ITS ---
FINAL REPORT CLINICAL HISTORY: arthritis COMPARISON: None FINDINGS: RIGHT HAND: Three views show moderate osteoarthritic change of the second DIP joint, while the other DIP joints reveal minimal osteoarthritic change. No bony erosions are identified. There is normal bony mineralization. IMPRESSION: Moderate osteoarthritic change of the right second DIP joint, while the other DIP joints reveal minimal osteoarthritic change. Reviewed, Interpreted and Dictated by Brooklyn Garcia MD Transcribed by Kellie Weems Authenticated and . [facility]
--- NOTE | 2023-12-29 14:41 | XR_ITS ---
FINAL REPORT CLINICAL HISTORY: arthritis COMPARISON: None FINDINGS: LEFT HAND: Three views show no evidence of acute displaced fracture or dislocation of the visualized bony architecture. There is mild osteoarthritic change in the DIP joints. The bony mineralization is normal, without evidence of erosions. IMPRESSION: Mild osteoarthritic change in the DIP joints. Reviewed, Interpreted and Dictated by Brooklyn Garcia MD Transcribed by Kellie Weems Authenticated and [facility]
[2023-12-29 15:00] LABS: Basophils # 0.1 K/mm3 (0-0.2); Basophils % 0.9 % (0.1-2.0); Eosinophils # 0.3 K/mm3 (0.0-0.4); Eosinophils % 3.4 % (0.1-12.0); Hemoglobin 14.1 g/dL (14.1-18.0); Lymphocytes # 2.4 K/mm3 (0.7-4.5); Mean Corpuscular HGB Conc 32.8 g/dL (31.8-35.4); Mean Corpuscular Hemoglobin 32.8 pg (27.0-31.2); Mean Corpuscular Volume 99.9 fl (80-94); Mean Platelet Volume 8.7 fl (7.4-10.4); Monocytes # 0.5 K/mm3 (0.1-1.0); Monocytes % 6.6 % (1.7-9.3); Neutrophils # 4.7 K/mm3 (1.8-7.8); Neutrophils % 59.2 % (37.0-80.0); Platelet Count 206 K/mm3 (142-424); Red Blood Count 4.31 M/mm3 (4.60-6.20); Red Cell Distribution Width 13.6 % (11.5-17.5)
[2023-12-29 15:37] LABS: Alanine Aminotransferase 30 U/L (12-78); Albumin Level 4.4 g/dl (3.5-5.0); Albumin/Globulin Ratio 1.5 (1.1-1.8); Alkaline Phosphatase 64 U/L (38-126); Anion Gap 5.7 mEq/L (5-15); Aspartate Amino Transferase 27 U/L (17-59); Bilirubin,Total 0.4 mg/dl (0.2-1.3); Blood Urea Nitrogen 26 mg/dl (9-20); Calcium 9.2 mg/dl (8.4-10.2); Carbon Dioxide 32 mmol/L (22.0-30.0); Chloride 104 mmol/L (98-107); Chol/HDL Ratio 4.3 (1-3.5); Cholesterol 211 mg/dl (140-200); Estimated Glomerular Filt Rate 99 ml/min (>60); GFR (African American) 120 ML/MIN (>60); Glucose 93 mg/dl (74-100); HDL Cholesterol 49 mg/dl (40-60); Potassium 4.7 mmoL/L (3.5-5.1); Sodium 137 mmol/L (136-145); Total Protein,Serum 7.4 g/dl (6.3-8.2); Triglycerides 334 mg/dl (30-150); Uric Acid 5.7 mg/dl (3.5-8.5); VLDL Cholesterol 67 mg/dL (0-40)
[2023-12-29 15:48] LABS: Direct LDL Cholesterol 126.13 mg/dL (100-129)
[2023-12-29 15:54] LABS: 25-OH Vitamin D, Total 41.9 ng/mL (30-100)
[2023-12-29 16:06] LABS: Hemoglobin A1C 6.4 % (4.0-6.0)
[2024-01-01 13:13] LABS: Anti-Centromere B Antibodies <0.2 AI (0.0-0.9); Anti-DNA (DS) Ab Qn <1 IU/mL (0-9); Anti-Jo-1 <0.2 AI (0.0-0.9); Anti-Smith Antibody <0.2 AI (0.0-0.9); Antichromatin Antibodies <0.2 AI (0.0-0.9); Antiscleroderma-70 Antibodies <0.2 AI (0.0-0.9); RNP Antibodies <0.2 AI (0.0-0.9); Sjogren's Anti-SS-A <0.2 AI (0.0-0.9); Sjogren's Anti-SS-B <0.2 AI (0.0-0.9)
== END 2023-12-29 23:59 | disposition home or self-care (01) ==
PROVIDERS: PCP Nurse Practitioner Family; Visit Provider Student in an Organized Health Care Education/Training Program
DX: M19.90 Unspecified osteoarthritis, unspecified site (principal)
CPT/HCPCS: 36415; 73130; 80050; 80053; 80061; 82306; 83036; 84443; 84550; 85025; 86225; 86235

== ENCOUNTER 2024-07-11 13:16 | Emergency (ER) | payer OTHER, SELFPAY ==
[2024-07-11 13:24] VITALS: BP 208/105; PULSE 92; RESP 20; TEMP 37.2; O2SAT 94; BMI 31.1
--- NOTE | 2024-07-11 13:34 | PC.NURSE ---
c collar places on pt upon arrival to eD
--- NOTE | 2024-07-11 13:40 | CT_ITS ---
FINAL REPORT TECHNIQUE: Thin section axial CT with coronal and sagittal reconstruction without contrast This study was performed with techniques to keep radiation doses as low as reasonably achievable, (ALARA). Individualized dose reduction techniques using automated exposure control or adjustment of mA and/or kV according to the patient''s size were employed. CLINICAL HISTORY: axial load/pain COMPARISON: None FINDINGS: No fracture is seen. There is a reversal of the normal lordosis in the upper cervical spine. There is anterolisthesis of C3 on C4 measuring 2.5 mm, retrolisthesis of C5 on C6 measuring 2 mm, and anterolisthesis of C7 on T1 measuring 4 mm. C2-3: Severe right bony neural foraminal narrowing without central canal stenosis. C3-4: Moderate to severe left bony neural foraminal narrowing without central canal stenosis. C4-5: Mild left bony neural foraminal narrowing without central canal stenosis. C5-6: Moderate central canal stenosis related to bony hypertrophic changes and disc disease. Severe right and moderate left neural foraminal narrowing. C6-C7: Mild degenerative central canal stenosis. Moderate bilateral neural foraminal narrowing. C7-T1: Unremarkable. IMPRESSION: Moderate to severe degenerative changes as above along with degenerative subluxation. Reviewed, Interpreted and Dictated by Brooklyn Garcia MD Transcribed by Johana No Authenticated and [facility]
--- NOTE | 2024-07-11 13:43 | HMH.EDGENADL ---
Discharge Plan Disposition Patient Disposition: Home, Self-Care Prescriptions Prescriptions: New hydrocodone-acetaminophen 7.5-325 mg tablet 1 tab PO BID PRN (Reason: pain) Qty: 2 0RF lidocaine 5 % adhesive patch,medicated 1 patch topical Q24H PRN (Reason: neck pain) Qty: 15 0RF Rx Instructions: leave on most painful area for up to 12 hrs No Action hydrocodone-acetaminophen 7.5-325 mg tablet 1 tab PO BID Patient Comments: TAKE 1 TABLET BY MOUTH TWICE DAILY gabapentin 600 mg tablet 600 mg PO ONCE Patient Comments: take 1 tab(s) orally once a day 30 day(s) tadalafil [Cialis] 5 mg tablet 5 mg PO DAILY PRN (Reason: sexual activity) Qty: 10 3RF Rx Instructions: administer approximately 30min before sexual activity; do not use more than 1 dose per 24hrs diclofenac sodium [Voltaren Arthritis Pain] 1 % gel 2 g topical QID Qty: 100 2RF Rx Instructions: apply to single elbow, wrist or hand; for hand includes palm/fingers/back of hand ibuprofen 600 mg tablet 600 mg PO Q8H PRN (Reason: pain) Qty: 90 0RF meloxicam 7.5 mg tablet 7.5 mg PO DAILY Qty: 30 2RF aspirin 81 mg tablet,delayed release (DR/EC) 81 mg PO DAILY Qty: 30 0RF lisinopril 20 mg tablet 20 mg PO DAILY Qty: 90 5RF ergocalciferol (vitamin D2) [Vitamin D2] 1,250 mcg (50,000 unit) capsule See Rx Instructions .ROUTE .COMPLEX Qty: 5 1RF Dose Instruction: TAKE ONE CAPSULE BY MOUTH WEEKLY DIRECTED Rx Instructions: TAKE ONE CAPSULE BY MOUTH WEEKLY DIRECTED atorvastatin 40 mg tablet 40 mg PO HS Qty: 90 3RF metformin 500 mg tablet 500 mg PO DAILY Qty: 90 3RF Referrals Follow up/Referrals: Antoni Shine APRN [Primary Care Provider] - See instructions Activity Restrictions/Add. Instructions Additional Instructions/Restrictions: At this time it was felt you are safe to be discharged home. If new or worsening symptoms please do not hesitate to return the emergency department. I have sent in a couple doses of your hydrocodone acetaminophen to bridge you until you are able to fill it tomorrow, please use your lidocaine patches as prescribed and take Tylenol 1000 mg every 6 hours as needed for your neck pain. Please follow-up with physical therapy here, they have not called you within 48 hours please call them early next week to get an appointment scheduled and tell them that you were seen in the emergency department and Dr. Irizarry referred you Clinical Impressions Clinical Impression: Acute neck pain, Radiculopathy Instructions Patient Instructions: DI for Neck Pain Print Language Print Language: Yakut Discharge ED Provider: Demetris Irizarry General Adult HPI General Chief complaint: Neck Pain/Injury Stated complaint: AO- jumped off trailer, neck pain Time Seen by Provider: 07/11/24 13:29 Mode of Arrival: Ambulatory Source of Information: Patient Description of Symptoms (Recalled from ER Triage Doc. by RN): neck pain. started approx 3 days ago. got worse yesterday after he stepped down out of the back of a semi. 01/10 pain. pt is crying. daily drinker. chrinic pain. has been out of hydrocodone for 3 days History of Present Illness HPI narrative: Patient is a 58-year-old male with past medical history of chronic back pain who presents emergency department for evaluation of acute back pain. Normally has lumbar back pain that is managed with multimodal pain control including hydrocodone. However he jumped down out of a truck the other day landing on his feet resulting in an axial load with severe pain in his neck that intermittently radiates down his right upper extremity. He did not fall directly on his neck or his head. No other acute complaints at this time. Please note that above description of symptoms, in this electronic medical record under categorization of recalled from ER triage doctor by RN are reflective of an initial nursing assessment, however, is not reflective of my full history and physical exam that was personally taken and clarified. Consequentially, this preceding description of symptoms, which may include the patient's categorized chief complaint in the EMR, do not reflect my personal clinical impression, and the ultimate description of history of present illness and patient stated complaints should be deferred to this section of the note. Unless stated otherwise or congruent with this section of the note, additional signs, symptoms, or incongruence should be interpreted as inaccurate with my clinical impression. Related Data Home Medications ?Medication ?Instructions ?Recorded ?Confirmed hydrocodone 7.5 mg-acetaminophen 1 tab PO BID 02/21/23 01/24/24 325 mg tablet gabapentin 600 mg tablet 600 mg PO ONCE 07/19/23 01/24/24 Previous Rx's ?Medication ?Instructions ?Recorded aspirin 81 mg tablet,delayed 81 mg PO DAILY ##30 07/13/20 release tadalafil 5 mg tablet (Cialis) 5 mg PO DAILY PRN sexual activity 07/19/23 #10 tabs lisinopril 20 mg tablet 20 mg PO DAILY #90 tabs 09/06/23 ergocalciferol (vitamin D2) 1,250 See Rx Instructions .Route 12/08/23 mcg (50,000 unit) capsule (Vitamin .COMPLEX #5 caps D2) diclofenac sodium 1 % topical gel 2 g topical QID #100 grams 12/29/23 (Voltaren Arthritis Pain) ibuprofen 600 mg tablet 600 mg PO Q8H PRN pain #90 tabs 12/29/23 atorvastatin 40 mg tablet 40 mg PO HS #90 tabs 01/02/24 metformin 500 mg tablet 500 mg PO DAILY #90 tabs 01/02/24 meloxicam 7.5 mg tablet 7.5 mg PO DAILY #30 tabs 01/24/24 hydrocodone 7.5 mg-acetaminophen 1 tab PO BID PRN pain #2 tabs 07/11/24 325 mg tablet lidocaine 5 % topical patch 1 patch topical Q24H PRN neck pain 07/11/24 #15 ea Allergies Allergy/AdvReac Type Severity Reaction Status Date / Time No Known Drug Allergies (NO Allergy Unknown Verified 01/24/24 09:53 KNOWN DRUG ALLERGIES) [facility] Disclaimer: The information contained in this section may have been updated after the patient was seen, as this information can be updated by other users. Social History Smoking Status: Former smoker tobacco type: cigarettes packs per day: 1 alcohol intake: current alcohol intake frequency: 3 or more drinks per day substance use type: denies use and other current occupational status: other Travel in the last 8 weeks: None household members: spouse housing: house Have you lived/traveled outside [place] in past 30 days?: No Contact w/someone who lives/traveled outside US past 30 days?: No Exposure to someone with infectious disease in past 14 days?: No Do you have a fever (greater than 100.4 F or 38 C)?: No Have you tested positive for COVID-19: No Exposed to someone with COVID-19 in past 14 days?: No Do you have a sore throat?: No Do you have a cough?: No Do you have any weakness?: No Do you have any diarrhea?: No Are you experiencing any unusual bleeding?: No Do you have any muscle aches/pain?: No Do you have any abdominal pain?: No Are you experiencing loss of taste or smell?: No Other Medical History Have you received the Flu Vaccine for this season: No Have you received the Pneumonia Vaccine: No ROS Obtained: Yes Systems reviewed as appropriate & no additional complaints except as documented Physical Exam General General appearance: alert and in no apparent distress Head Head exam: atraumatic and normocephalic Eye Eye exam: Present PERRL and EOMI ENT ENT exam: Present mucous membranes moist Neck Neck exam: Present normal inspection and tenderness (Diffuse midline and bilateral paraspinal cervical tenderness) Chest Chest inspection: Present normal inspection and symmetric chest wall rise Respiratory Respiratory exam: Present normal lung sounds bilaterally; Absent respiratory distress Cardiovascular Cardiovascular exam: Present regular rate and normal rhythm Abdominal Exam Abdominal exam: Present soft Extremities Exam Extremities exam: Present normal inspection Back Exam Back exam: Present normal inspection and tenderness (Cervical spine tenderness, no thoracolumbar tenderness) Neurological Exam Neurological exam: Present alert and CN II-XII intact; Absent motor sensory deficit Psychiatric Psychiatric exam: Present normal affect Skin Skin exam: Present warm and dry Medical Decision Making Medical Records Screening: Per USPSTF and CDC recommendations, given the prevalence of disease in our region, it is our hospital?s policy to screen for HIV and viral Hepatitis for all patients aged 18 and over and those with ongoing risk factors. Som Inquiry Pt receiving controlled substance: Yes Som was queried for this patient: Yes Risks and benefits of using a controlled substance: were not discussed with pt by me Vital Signs: 07/11/24 13:24 07/11/24 14:00 Temperature 98.9 F Temperature Source Oral Pulse Rate 91 H Pulse Rate [Left] 92 H Respiratory Rate 20 Blood Pressure 195/111 H Blood Pressure [Right Arm] 208/105 H Blood Pressure Mean 139 Blood Pressure Mean [Right Arm] 139 02 Sat by Pulse Oximetry 94 L 92 L Oxygen Delivery Method Room Air Lab Data Lab Results 07/11/24 13:30: WBC 12.7 H, RBC 3.98 L, Hgb 12.8 L, Hct 37.5 L, MCV 94.2 H, MCH 32.2 H, MCHC 34.1, RDW 13.0, Plt Count 181, MPV 11.1 H, Neut % (Auto) 73.9, Lymph % (Auto) 15.2, Roberts % (Auto) 8.1, Eos % (Auto) 2.2, Baso % (Auto) 0.4, Neut # (Auto) 9.4 H, Lymph # (Auto) 1.9, Roberts # (Auto) 1.0, Eos # (Auto) 0.3, Baso # (Auto) 0.1, Sodium 140, Potassium 4.1, Chloride 103, Carbon Dioxide 29, Anion Gap 12.1, BUN 23 H, Creatinine 0.60 L, Estimated Creat Clear 196, Estimated GFR 138, Est GFR ( Amer) 167, Glucose 203 H, Calcium 9.2, Plasma/Serum Alcohol < 10 07/11/24 13:30 07/11/24 13:30 Orders (Tests/Meds): ED MEDICATIONS Discontinued Medications Generic Name Dose Route Start Last Admin Trade Name Keiko PRN Reason Stop Dose Admin Acetaminophen 1,000 mg 07/11/24 13:42 07/11/24 13:54 Acetaminophen 500mg Tab PO 07/11/24 13:43 1,000 mg ONCE ONE Administration Ketorolac Tromethamine 30 mg 07/11/24 13:42 07/11/24 13:54 Ketorolac 30mg/Ml Vial IV 07/11/24 13:43 30 mg ONCE ONE Administration Lidocaine 1 each 07/11/24 13:42 07/11/24 13:53 Lidocaine 5% Transdermal Patch TD 07/11/24 13:43 1 each ONCE ONE Administration Methocarbamol 1,000 mg 07/11/24 13:42 07/11/24 13:54 Methocarbamol 500mg Tablet PO 07/11/24 13:43 1,000 mg ONCE ONE Administration Oxycodone HCl 5 mg 07/11/24 13:42 07/11/24 13:54 Oxycodone 5mg Immediate Release Tablet PO 07/11/24 13:43 5 mg ONCE ONE Administration ORDERS Category Date Time Status CT cervical spine wo con Stat Cat Scan 07/11/24 13:40 Completed BMP [Basic Metabolic Panel] Stat Lab 04/10/25 13:30 Completed CBC w/Auto Diff [Complete Blood Count Auto Diff] Stat Lab 07/11/24 13:30 Completed Ethanol [Ethyl Alcohol] Stat Lab 07/11/24 13:30 Completed HIV Combo Stat Lab 07/11/24 13:30 Received Hepatitis C Ab Qual. W/ RFX Stat Lab 07/11/24 13:30 Received Medical Decision Narrative: In summary patient is a 58-year-old male past medical history described above who presents emergency department for evaluation of radicular back pain. Patient is hemodynamically stable nontoxic-appearing upon arrival, afebrile. Differential diagnosis includes fracture, radicular pain, among others. Workup will be conducted with CT imaging of the cervical spine and C-spine precautions will be maintained until it has resulted. Initial interventions include multimodal pain control. CT imaging remarkable for moderate to severe degenerative changes with degenerative subluxation. Upon repeat evaluation patient had significant improvement of his symptoms. Given this patient is appropriate for outpatient management at this time will be given a couple doses of his hydrocodone/acetaminophen to be bridged until tomorrow as well as methocarbamol and lidocaine patches and will follow-up with his PCP in the coming days for continued evaluation and will be referred to physical therapy. Critical Care Critical Care Time Critical Care Time: No
[2024-07-11 13:50] LABS: Basophils # 0.1 K/mm3 (0-0.2); Basophils % 0.4 % (0.1-2.0); Eosinophils # 0.3 K/mm3 (0.0-0.4); Eosinophils % 2.2 % (0.1-12.0); Hematocrit 37.5 % (42.0-52.0); Hemoglobin 12.8 g/dL (14.1-18.0); Lymphocytes # 1.9 K/mm3 (0.7-4.5); Lymphocytes % 15.2 % (10-50); Mean Corpuscular HGB Conc 34.1 g/dL (31.8-35.4); Mean Corpuscular Hemoglobin 32.2 pg (27.0-31.2); Mean Corpuscular Volume 94.2 fl (80-94); Mean Platelet Volume 11.1 fl (7.4-10.4); Monocytes % 8.1 % (1.7-9.3); Neutrophils # 9.4 K/mm3 (1.8-7.8); Neutrophils % 73.9 % (37.0-80.0); Nucleated Red Blood Cells # 0 10^3/uL; Nucleated Red Blood Cells % 0 %; Platelet Count 181 K/mm3 (142-424); Red Blood Count 3.98 M/mm3 (4.60-6.20); Red Cell Distribution Width-SD 44.7 fL; White Blood Count 12.7 K/mm3 (4.8-10.8)
[2024-07-11 13:52] LABS: Chloride 103 mmol/L (98-107)
[2024-07-11 13:53] LABS: Potassium 4.1 mmoL/L (3.5-5.1); Sodium 140 mmol/L (136-145)
[2024-07-11] MEDS: LIDOCAINE 5% TRANSDERMAL PATCH 1 EACH TD (13:53)
[2024-07-11] MEDS: METHOCARBAMOL 500MG TABLET 1000 MG PO (13:54)
[2024-07-11] MEDS: OXYCODONE 5MG IMMEDIATE RELEASE TABLET 5 MG PO (13:54)
[2024-07-11] MEDS: ACETAMINOPHEN 500MG TAB 1000 MG PO (13:54)
[2024-07-11] MEDS: KETOROLAC 30MG/ML VIAL 30 MG IV (13:54)
[2024-07-11 13:55] LABS: Blood Urea Nitrogen 23 mg/dl (9-20); Creatinine Clearance Estimated 196 mL/min (50-200); Estimated Glomerular Filt Rate 138 ml/min (>60); GFR (African American) 167 ML/MIN (>60)
[2024-07-11 13:56] LABS: Anion Gap 12.1 mEq/L (5-15); Calcium 9.2 mg/dl (8.4-10.2); Carbon Dioxide 29 mmol/L (22.0-30.0); Glucose 203 mg/dl (74-100)
[2024-07-11 14:00] VITALS: BP 195/111; PULSE 91; O2SAT 92
[2024-07-11 14:03] LABS: Ethyl Alcohol < 10 mg/dl (0-10)
--- NOTE | 2024-07-11 14:53 | PC.NURSE ---
pt reports much improvement in pain after medication
[2024-07-11 15:17] VITALS: BP 142/88; PULSE 91; RESP 20; TEMP 37.1; O2SAT 93
[2024-07-11 15:46] LABS: HIV Combo NEGATIVE (Negative)
[2024-07-11 15:56] LABS: Hepatitis C Ab Qual. W/ RFX NEGATIVE (Negative)
== END 2024-07-11 15:19 | disposition home or self-care (01) ==
PROVIDERS: Emergency Provider Emergency Medicine; PCP Nurse Practitioner Family
DX: M54.12 Radiculopathy, cervical region (principal); M54.2 Cervicalgia; Z11.59 Encounter for screening for other viral diseases; Z11.4 Encounter for screening for human immunodeficiency virus [HIV]
CPT/HCPCS: 96374; 99284; 72125; 80048; 80320; 85025; 86803; 87389; J1885

== ENCOUNTER 2024-07-23 14:46 | Outpatient (RCR) | payer OTHER, SELFPAY | END 2024-07-23 23:59 | disposition home or self-care (01) | LOC: PT 14:46 | PROVIDERS: PCP Nurse Practitioner Family; Visit Provider Emergency Medicine | DX: M54.2 Cervicalgia (principal); M54.12 Radiculopathy, cervical region | CPT/HCPCS: 97110; 97140; 97163; 97530 ==